=== PATIENT | female | born 1985 | race Caucasian/White ===

== ENCOUNTER 2016-10-09 02:45 | Emergency (ER) | payer MEDICAID ==
[~2016-10-09] VITALS: Ht 154.9 cm; Wt 49.4 kg
--- NOTE | ~2016-10-09 | CT2 ---
[facility] A Service of [facility] RADIOLOGY TEXT RESULTS PATIENT: BETHANY LINDQUIST LOCATION: PHIL : 85 UNIT #: [id number] AGE: [address]: Esmer Sung MD SEX: F ORDER DR: [id number] [facility] [address] [place], [place] [address] [id number] MR#: [id number] Acc #: [id number] NAME: BETHANY LINDQUIST : 1985 SEX: F STUDY DATE/TIME: 10/09/2016 5:23 UNIT: PHIL ROOM: STUDY DESCRIPTION: CT Abd and Pelv W Cont Attending Physician: Esmer Sung M.D. Ordering Physician: Sulaiman Ramirez D.O. Primary Care Physician: Primary Care Physician No MEDICAL IMAGING REPORT This report is preliminary unless electronic signature is present EXAM CT abdomen and pelvis with contrast, 10/09/2016 HISTORY 31-year-old female in the ED complaining of 2-day history of lower abdomen pain. History of heroin and methamphetamine abuse is noted. TECHNIQUE CT examination of the abdomen and pelvis with IV contrast. GI contrast was not ordered or was not consumed. This CT examination was performed with one or more of the following radiation dose reduction techniques: automatic exposure control, adjustment of mA and/or kV according to patient size, and iterative reconstruction. FINDINGS Liver, pancreas, spleen and kidneys are normal in size and appearance. No gallbladder distension or bile duct dilatation. Moderately large volume stool throughout the colon. Small bowel and colon are normal in caliber and appearance, as imaged. The appendix is normal. PELVIS: Uterus, ovaries, urinary bladder and rectum are within normal limits. Limited lung base images show no active disease in the lower chest. IMPRESSION 1. No acute abnormality within the abdomen or pelvis. 2. Moderately large volume stool throughout the colon. Normal appendix. Dictated by... Tyson Low M.D. [facility] A Service [facility] RADIOLOGY TEXT RESULTS PATIENT: BETHANY LINDQUIST LOCATION: [facility] : 85 UNIT #: [id number] AGE: [address]: Esmer Sung MD SEX: F ORDER DR: THIS IS AN ELECTRONICALLY VERIFIED REPORT Tyson Low M.D. at 10/09/2016 9:49 PM [place] TD: 10/09/2016 08:27 JOB #: [id number] MEDICAL IMAGING REPORT Page 1 of 1 COPY
[~2016-10-09 02:45] MED LIST: BACTRIM DS TABL1 TA1 PO; CLEOCIN HCL300 M1; FLAGYL PO; IBUPROFEN PO; KEFLEX500 M1 PO; LEVAQUIN PO; LORTAB 10-5001 EACH PO; MACROBID100 M1 DOB; NAPROSYN-EC500 M1 DOB; NAPROSYN375 MG PO; NO MEDICATIONS; PHENERGAN PO; PHENERGAN SUPP25 MG PR; PHENERGAN25 M1 PO; VICODIN 5/500 T1 TAB PO; VOLTAREN75 MG PO; ZANTAC PO; ZOFRAN ODT4 MG PO; ZOFRAN PO; ZOFRAN2 MG/M1 PO
[2016-10-09 04:05] LABS: BASOPHIL% 0.2 % (0-2.5); HEMATOCRIT 37.5 % (35.0-45.0); HEMOGLOBIN 12.2 gm/dL (12.0-16.0); LYMPHOCYTE# 1.6 X10e3 (1.0-3.5); LYMPHOCYTE% 10.3 % (17.0-45.0); MEAN CELL VOLUME 81.6 FL (83-96); MEAN CORPUSCULAR HEMOGLOBIN 26.6 PG (28-34); MEAN CORPUSCULAR HGB CONC 32.6 g/dL (30-36); MEAN PLATELET VOLUME 7.8 FL (6.5-11.5); MONOCYTE# 0.5 X10e3 (0-1.0); MONOCYTE% 3.3 % (3.0-12.0); NEUTROPHIL# 13.7 X10e3 (1.5-7.1); NEUTROPHIL% 86.2 % (40-75); PLATELET COUNT 358 X10e3 (140-420); RED BLOOD COUNT 4.59 X10e (3.90-5.30); RED CELL DISTRIBUTION WIDTH 14.7 % (11.0-15.5); WHITE BLOOD COUNT 15.9 X10e3 (4.0-10.5)
[2016-10-09 04:08] LABS: DIFF IND YES
[2016-10-09 04:26] LABS: PLATELET ESTIMATE NORMAL (NORMAL)
[2016-10-09 04:27] LABS: ALBUMIN SERUM 4.7 g/dL (3.5-5.0); BILIRUBIN, DIRECT 0.1 mg/dL (0.0-0.2); BILIRUBIN,INDIRECT 0.2 mg/dL (0.0-0.9); BILIRUBIN,TOTAL 0.3 mg/dL (0.2-2.0); CALCIUM SERUM 9.5 mg/dL (8.4-10.2); CREATININE SERUM 0.5 mg/dL (0.6-1.4); POIKILOCYTOSIS SL; POTASSIUM 3.4 mmol/L (3.5-5.1); PROTEIN TOTAL SERUM 8.9 g/dL (6.0-8.3); TEAR DROP CELLS PRESENT
[2016-10-09 05:56] LABS: URINE SOURCE CLEAN CATCH
[2016-10-09 06:00] LABS: URINE APPEARANCE CLEAR; URINE BILIRUBIN NEG (NEG); URINE BLOOD NEG (NEG); URINE COLOR YELLOW; URINE GLUCOSE NEG (NEG); URINE KETONE 1+ (NEG); URINE LEUKOCYTE ESTERASE NEG (NEG); URINE NITRATE NEG (NEG); URINE PH 7.5 (5-8); URINE PROTEIN 1+ (NEG); URINE SPECIFIC GRAVITY 1.071 (1.003-1.035); URINE UROBILINOGEN 0.2 MG/DL (NEG)
[2016-10-09 06:02] LABS: URINE BACTERIA AUWI NEG (NEGATIVE); URINE SQUAMOUS EPITHELIAL CELL OCC /[HPF]
[2016-10-09 06:03] LABS: CULTURE INDICATED? NO
[2016-10-09 06:14] LABS: AMPHETAMINE NEG (NEG); BARBITURATES NEG (NEG); BENZODIAZEPINES NEG (NEG); COCAINE POS (NEG); MARIJUANA NEG (NEG); OPIATES NEG (NEG); TRICYCLIC ANTIDEPRESSANTS NEG (NEG); U METHADONE NEG (NEG)
== END 2016-10-09 09:56 | disposition home or self-care (01) ==
LOC: CED 02:45
PROVIDERS: Emergency Medicine
DX: R10.9 Unspecified abdominal pain (principal); F11.10 Opioid abuse, uncomplicated; F14.10 Cocaine abuse, uncomplicated; F17.200 Nicotine dependence, unspecified, uncomplicated
CPT/HCPCS: 36415; 74177; 80048; 80076; 80307; 81003; 83605; 83690; 84703; 85025; 96361; 96372; 96374; 96375; 99284; J0500; J1885; J2405; J2550; Q9967